=== PATIENT | male | born 1935 | race Caucasian/White ===

== ENCOUNTER 2017-06-17 08:26 | Day surgery (SDC) | payer MEDICARE, BC ==
[2017-06-17 12:24] VITALS: TEMP 98; BMI 21.1
--- NOTE | 2017-06-17 12:40 | ULT ---
ULTRASOUND-GUIDED PARACENTESIS: INDICATIONS: Ascites. TECHNIQUE: Informed consent was obtained. The site overlying the right lower quadrant was prepped and draped i n the usual sterile fashion. Buffered 1% Lidocaine was administered into the underlying subcutaneou s tissues. A 5 [employer] catheter was then guided down into a large in the right lower qu adrant. There was removal of 2 L of normal appearing peritoneal fluid. The patient tolerated the p rocedure without difficulty. IMPRESSION: Successful ultrasound-guided paracentesis with removal of 2 L of normal appearing peritoneal fluid. POS: [facility]
== END 2017-06-17 09:40 | disposition home or self-care (01) ==
LOC: ULT 08:26
PROVIDERS: ATTEND Internal Medicine Gastroenterology
PROC: 0W9G3ZX Drainage of Peritoneal Cavity, Percutaneous Approach, Diagnostic (ICD-10-PCS; principal; 2017-06-17)
PROC: BW40ZZZ Ultrasonography of Abdomen (ICD-10-PCS; 2017-06-17)
DX: R18.8 Other ascites (principal); I48.2 Chronic atrial fibrillation; E11.22 Type 2 diabetes mellitus with diabetic chronic kidney disease; I12.9 Hypertensive chronic kidney disease with stage 1 through stage 4 chronic kidney disease, or unspecified chronic kidney disease; N18.3 Chronic kidney disease, stage 3 (moderate); I25.10 Atherosclerotic heart disease of native coronary artery without angina pectoris; Z95.1 Presence of aortocoronary bypass graft; Z90.5 Acquired absence of kidney; Z87.891 Personal history of nicotine dependence; Z87.19 Personal history of other diseases of the digestive system
CPT/HCPCS: 49083

== ENCOUNTER → 2017-07-01 | Day surgery (SDC) | payer MEDICARE, BC ==
[2017-06-28 09:33] VITALS: BMI 22.8
[~2017-07-01] MED LIST: FLU VACC TS2017-18 (>65YR) 0.5 ML SYRINGE IM ONE; Sodium Bicarbonate 2.4 MEQ/5 ML ONE
[2017-07-01 08:54] LABS: #Eosinphils 0.1 thou/uL (0.0-0.7); #Lymphocytes 1.3 thou/uL (1.20-3.40); #Monocytes 0.4 thou/uL (0.11-0.59); %Basophils 0.7 % (0.0-1.0); %Eosinophils 1.4 % (0.0-10.0); %Lymphocytes 26.9 % (21.0-51.0); %Monocytes 8.9 % (0.0-10.0); Hematocrit 30.7 % (42.0-52.0); Mean Platelet Volume 8.9 fL (7.4-10.4); Red Blood Cell (RBC) Count 3.31 mill/uL (4.70-6.10); White Blood Cell (WBC) Count 4.9 thou/uL (4.8-10.8)
[2017-07-01 09:12] LABS: Prothrombin Time 15.2 SEC (12.0-14.7)
[2017-07-01 09:13] LABS: PTT 33.2 SEC (22.9-36.1)
--- NOTE | 2017-07-01 10:29 | ULT ---
LIMITED ABDOMINAL ULTRASOUND: DATE: 10/01/16. HISTORY: An 81-year-old male, assess ascites volume for paracentesis. FINDINGS: Limited sonographic survey of the abdomen/pelvis performed to evaluate ascites volume. There is a r elatively small amount of ascites noted within the right lower quadrant and right upper quadrant, le ss than on prior imaging. There is no significant fluid in the left lower quadrant or left upper qu adrant and a scant amount of free fluid in the midline. Secondary to the volume of ascites present at this time, paracentesis was not performed. IMPRESSION: Relatively low volume ascites, primarily within the right abdomen. Secondary to low volume, paracen tesis was not performed at this time. Recommend repeat imaging in 1-2 weeks to reevaluate ascites v olume. POS: [facility]
== END ==
LOC: ULT 08:10
PROVIDERS: ATTEND Internal Medicine Gastroenterology
DX: R18.0 Malignant ascites (principal); Z53.8 Procedure and treatment not carried out for other reasons; C64.9 Malignant neoplasm of unspecified kidney, except renal pelvis; I48.2 Chronic atrial fibrillation; I25.10 Atherosclerotic heart disease of native coronary artery without angina pectoris; E11.22 Type 2 diabetes mellitus with diabetic chronic kidney disease; I12.9 Hypertensive chronic kidney disease with stage 1 through stage 4 chronic kidney disease, or unspecified chronic kidney disease; N18.3 Chronic kidney disease, stage 3 (moderate); Z79.84 Long term (current) use of oral hypoglycemic drugs; Z79.899 Other long term (current) drug therapy; Z95.1 Presence of aortocoronary bypass graft; Z87.891 Personal history of nicotine dependence
CPT/HCPCS: 36415; 76705; 85025; 85610; 85730

== ENCOUNTER → 2017-07-15 | Day surgery (SDC) | payer MEDICARE, BC ==
[~2017-07-15] MED LIST changes: -FLU VACC TS2017-18 (>65YR) 0.5 ML SYRINGE IM ONE
[2017-07-15 09:54] VITALS: BP 141/58; TEMP 98.1; BMI 24.4
--- NOTE | 2017-07-15 11:13 | ULT ---
ULTRASOUND GUIDED PARACENTESIS: Date: 07/15/17 HISTORY: Ascites. COMPARISON: 06/17/17. FINDINGS: Technically successful ultrasound guided paracentesis. A total of 3,100 mL of yellow-colored ascites was aspirated. Post procedure image demonstrates essential resolution of ascites. TECHNIQUE: The patient's abdomen was evaluated. Right lower quadrant was deemed appropriate. Consent was obtain ed to perform an ultrasound guided paracentesis. Skin was prepped and draped in the sterile fashion. 1% lidocaine, buffered with sodium bicarbonate, was used for local anesthesia. Under ultrasound yessica ded, a 5 Surinamese 7.0 cm Yueh catheter was advanced into the peritoneal space. Via vacuum bottles, a total of 3,100 mL of yellow-colored ascites was aspirated. The patient tolerated the procedure well. No immediate postprocedure complication. IMPRESSION: Technically successful ultrasound guided paracentesis. POS: [facility]
== END ==
LOC: ULT 08:27
PROVIDERS: ATTEND Internal Medicine Gastroenterology
PROC: 0W9G3ZZ Drainage of Peritoneal Cavity, Percutaneous Approach (ICD-10-PCS; principal; 2017-07-15)
PROC: BW40ZZZ Ultrasonography of Abdomen (ICD-10-PCS; 2017-07-15)
DX: C64.9 Malignant neoplasm of unspecified kidney, except renal pelvis (principal); C78.7 Secondary malignant neoplasm of liver and intrahepatic bile duct; R18.0 Malignant ascites; D63.8 Anemia in other chronic diseases classified elsewhere; I48.2 Chronic atrial fibrillation; I10 Essential (primary) hypertension; E11.9 Type 2 diabetes mellitus without complications; Z79.84 Long term (current) use of oral hypoglycemic drugs; Z79.899 Other long term (current) drug therapy; Z95.1 Presence of aortocoronary bypass graft; Z90.5 Acquired absence of kidney; Z98.890 Other specified postprocedural states; Z87.891 Personal history of nicotine dependence
CPT/HCPCS: 49083

== ENCOUNTER → 2017-08-12 | Day surgery (SDC) | payer MEDICARE, BC ==
[2017-08-12 08:23] LABS: #Eosinphils 0.1 thou/uL (0.0-0.7); #Lymphocytes 0.9 thou/uL (1.20-3.40); #Monocytes 0.3 thou/uL (0.11-0.59); #Neutrophils 2.6 thou/uL (1.40-6.50); %Basophils 0.2 % (0.0-1.0); %Eosinophils 1.8 % (0.0-10.0); %Lymphocytes 23.3 % (21.0-51.0); %Monocytes 7.5 % (0.0-10.0); Hematocrit 30.7 % (42.0-52.0); Mean Platelet Volume 8.9 fL (7.4-10.4); Red Blood Cell (RBC) Count 3.33 mill/uL (4.70-6.10); White Blood Cell (WBC) Count 3.9 thou/uL (4.8-10.8)
[2017-08-12 08:31] LABS: PTT 30.8 SEC (22.9-36.1); Prothrombin Time 15.3 SEC (12.0-14.7)
--- NOTE | 2017-08-12 11:49 | ULT ---
ULTRASOUND GUIDED PARACENTESIS: Date: 08/12/17 HISTORY: Ascites. COMPARISON: Ultrasound guided paracentesis dated 07/15/17. TECHNIQUE: Patient was brought to the ultrasound suite. All questions were answered. The patient's right lower quadrant was prepped and draped in the normal sterile fashion. Timeout was performed. Informed consent was already obtained. 3 mL of buffered lidocaine was instilled into the superficial and deep soft tissues. Small dermatotom y was made. Using a 5 Armenian Yueh needle, the peritoneal space was accessed. 4,600 mL of straw-colore d fluid was aspirated. The patient tolerated the procedure well. IMPRESSION: Technically successful ultrasound guided paracentesis with removal of 4,600 mL of fluid. POS: [facility]
== END ==
LOC: ULT 08:30
PROVIDERS: ATTEND Internal Medicine Gastroenterology
PROC: 0W9G30Z Drainage of Peritoneal Cavity with Drainage Device, Percutaneous Approach (ICD-10-PCS; principal; 2017-08-12)
DX: C64.9 Malignant neoplasm of unspecified kidney, except renal pelvis (principal); C78.7 Secondary malignant neoplasm of liver and intrahepatic bile duct; R18.0 Malignant ascites; D50.0 Iron deficiency anemia secondary to blood loss (chronic); I10 Essential (primary) hypertension; E11.9 Type 2 diabetes mellitus without complications; M10.9 Gout, unspecified; I25.10 Atherosclerotic heart disease of native coronary artery without angina pectoris; I48.91 Unspecified atrial fibrillation; Z79.84 Long term (current) use of oral hypoglycemic drugs; Z79.899 Other long term (current) drug therapy; Z95.1 Presence of aortocoronary bypass graft; Z98.61 Coronary angioplasty status; Z90.5 Acquired absence of kidney; Z87.891 Personal history of nicotine dependence
CPT/HCPCS: 36415; 49083; 85025; 85610; 85730

== ENCOUNTER 2017-08-26 08:07 | Day surgery (SDC) | payer MEDICARE, BC ==
--- NOTE | 2017-08-26 11:26 | ULT ---
ULTRASOUND GUIDED PARACENTESIS: 08/26/2017 Informed consent was obtained from the patient. Ultrasound guidance was used to evaluate the abdomen . A large amount of fluid was seen in the peritoneal cavity. The right mid abdomen was evaluated us ing sonography. The overlying skin was prepped and draped in the usual sterile manner. A 1% Lidocai ne solution was used to anesthetize the overlying soft tissues. A small dermatotomy was made. A 5 F rench Yueh needle was placed in the peritoneal collection. A total of 4000 mL of peritoneal fluid wa s removed without difficulty. No complications encountered during the course of the exam. IMPRESSION: Successful ultrasound guided paracentesis. POS: [facility]
[2017-08-26 12:47] VITALS: BP 114/53; TEMP 97.7; BMI 25.2
== END 2017-08-26 09:45 | disposition home or self-care (01) ==
LOC: ULT 08:07
PROVIDERS: ATTEND Internal Medicine Gastroenterology
DX: C64.9 Malignant neoplasm of unspecified kidney, except renal pelvis (principal); R18.0 Malignant ascites; C78.7 Secondary malignant neoplasm of liver and intrahepatic bile duct; D50.0 Iron deficiency anemia secondary to blood loss (chronic); E11.8 Type 2 diabetes mellitus with unspecified complications; I10 Essential (primary) hypertension; Z79.84 Long term (current) use of oral hypoglycemic drugs; Z79.899 Other long term (current) drug therapy; Z95.5 Presence of coronary angioplasty implant and graft; Z98.890 Other specified postprocedural states
CPT/HCPCS: 49083

== ENCOUNTER 2017-09-09 07:57 | Day surgery (SDC) | payer MEDICARE, BC ==
[2017-09-09 08:14] LABS: #Eosinphils 0.1 thou/uL (0.0-0.7); #Lymphocytes 1.3 thou/uL (1.20-3.40); #Monocytes 0.4 thou/uL (0.11-0.59); #Neutrophils 3.4 thou/uL (1.40-6.50); %Basophils 0.4 % (0.0-1.0); %Eosinophils 2.1 % (0.0-10.0); %Lymphocytes 24.9 % (21.0-51.0); %Monocytes 7.6 % (0.0-10.0); Hematocrit 29.1 % (42.0-52.0); Mean Platelet Volume 7.9 fL (7.4-10.4); Red Blood Cell (RBC) Count 3.32 mill/uL (4.70-6.10); White Blood Cell (WBC) Count 5.2 thou/uL (4.8-10.8)
[2017-09-09] MEDS ORDERED: Sodium Bicarbonate 2.4 MEQ/5 ML ONE (08:14)
[2017-09-09] MEDS ORDERED: Lidocaine 1% PF 5 ML VIAL ONE (08:15)
[2017-09-09 08:21] LABS: PTT 34.1 SEC (22.9-36.1); Prothrombin Time 14.7 SEC (12.0-14.7)
[2017-09-09] MEDS ORDERED: FLU VACC TS2017-18 (>65YR) 0.5 ML SYRINGE IM ONE (09:00)
[2017-09-09 13:12] VITALS: BMI 32.9
--- NOTE | 2017-09-09 13:16 | ULT ---
ULTRASOUND GUIDED PARACENTESIS: DATE: 09/09/17. HISTORY: Symptomatic malignant ascites. FINDINGS: Informed consent was obtained prior to the procedure. Preprocedural imaging demonstrates significant ascites within the abdomen/pelvis, most prominent on t he right. The skin overlying the right upper quadrant was prepped and draped in normal sterile fashion and anes thetized with 1% buffered Lidocaine. With direct sonographic guidance, a 5 Turkmen [employer] catheter is advanced into the ascites within the ri t upper quadrant and removal of the stylette yields christian-colored fluid. 4250 cc were removed. Th e patient tolerated the procedure well with no postprocedural complications. IMPRESSION: Successful ultrasound-guided paracentesis as above. POS: [facility]
[2017-09-09 13:18] VITALS: BP 119/76; TEMP 98.7
== END 2017-09-09 11:20 | disposition home or self-care (01) ==
LOC: ULT 07:57
PROVIDERS: ATTEND Internal Medicine Gastroenterology
PROC: 0W9G3ZX Drainage of Peritoneal Cavity, Percutaneous Approach, Diagnostic (ICD-10-PCS; principal; 2017-09-09)
DX: R18.0 Malignant ascites (principal); C64.9 Malignant neoplasm of unspecified kidney, except renal pelvis; C78.7 Secondary malignant neoplasm of liver and intrahepatic bile duct
CPT/HCPCS: 36415; 49083; 85025; 85610; 85730; J2001

== ENCOUNTER 2017-09-24 08:05 | Day surgery (SDC) | payer MEDICARE, BC ==
[2017-09-20 08:51] VITALS: BMI 22.2
[2017-09-24] MEDS ORDERED: Sodium Bicarbonate 2.5 MEQ/5 ML VIAL ONE (08:26)
[2017-09-24] MEDS ORDERED: Lidocaine 1% PF 5 ML VIAL ONE (08:26)
--- NOTE | 2017-09-24 10:51 | ULT ---
ULTRASOUND-GUIDED PARACENTESIS: CLINICAL INDICATION: Ascites. PROCEDURE: After informed consent had been obtained, the patient was escorted to the ultrasound suite and placed in a supine position. The abdomen was imaged which revealed adequate ascites for the procedure. Th e skin of the abdomen was then prepped and draped in the standard sterile fashion and the skin surfac e, subcutaneous tissues, and peritoneal lining of the abdomen were anesthetized with 1% Lidocaine buf fered with sodium bicarbonate. A right lower quadrant approach was selected. A small skin incision was made at the site of topical anesthesia. Subsequently, under real-time ultrasound guidance a Authentic[employer] catheter was advanced through the incision site into the peritoneal cavity. Ascites was present at the catheter hub. The catheter was then secured to vacuum sealed sterile containers, via sterile tub ing and subsequently 4.1 L of clear yellow ascites was drained from the patient. The patient was the n removed from the patient. The patient tolerated the procedure well without evidence of complicatio n. Post-procedure imaging revealed no complication and interval reduction in volume of ascites. The patient was monitored by a radiology nurse and was stable in condition. Incidental note of hepatic mass formation, incompletely assessed. As clinically feasible, follow up d edicated imaging with CT hepatic mass protocol may be performed to more definitively assess. IMPRESSION: Technically successful ultrasound-guided paracentesis, as above. POS: [facility]
[2017-09-24 11:36] VITALS: BP 115/49; TEMP 97.7
== END 2017-09-24 09:35 | disposition home or self-care (01) ==
LOC: ULT 08:05
PROVIDERS: ATTEND Internal Medicine Gastroenterology
PROC: 0W9G3ZZ Drainage of Peritoneal Cavity, Percutaneous Approach (ICD-10-PCS; principal; 2017-09-24)
PROC: BW40ZZZ Ultrasonography of Abdomen (ICD-10-PCS; 2017-09-24)
DX: C64.9 Malignant neoplasm of unspecified kidney, except renal pelvis (principal); R18.0 Malignant ascites; I10 Essential (primary) hypertension; I48.91 Unspecified atrial fibrillation; E11.9 Type 2 diabetes mellitus without complications; M10.9 Gout, unspecified; I25.10 Atherosclerotic heart disease of native coronary artery without angina pectoris; Z79.4 Long term (current) use of insulin; Z79.899 Other long term (current) drug therapy; Z98.61 Coronary angioplasty status; Z95.1 Presence of aortocoronary bypass graft; Z90.5 Acquired absence of kidney; Z98.890 Other specified postprocedural states; Z87.891 Personal history of nicotine dependence
CPT/HCPCS: 49083; J2001

== ENCOUNTER 2017-10-07 08:01 | Day surgery (SDC) | payer MEDICARE, BC ==
[2017-10-07] MEDS ORDERED: Sodium Bicarbonate 2.4 MEQ/5 ML ONE (08:14)
[2017-10-07 10:18] VITALS: BP 114/52; TEMP 96.7; BMI 26.3
--- NOTE | 2017-10-07 10:28 | ULT ---
SONOGRAPHIC-GUIDED PARACENTESIS: HISTORY: Recurrent ascites. FINDINGS: After explaining the procedure and answering all questions, the right lower quadrant was prepped and draped in the usual sterile fashion. Sterile technique, buffered local anesthesia, sonographic ivy nce, and an anterior right abdominal approach were used to carefully advance the tip of a 19-gauge Lizama eh needle and catheter into the free fluid. The catheter was left to drain a total volume of 4.[address] foamy yellow liquid. The catheter was removed. Minimal fluid remained. The patient tolerated t he procedure well and was dismissed in good condition. IMPRESSION: Technically successful sonographic-guided paracentesis. POS: [facility]
== END 2017-10-07 10:05 | disposition home or self-care (01) ==
LOC: ULT 08:01
PROVIDERS: ATTEND Internal Medicine Gastroenterology
PROC: 0W9G3ZZ Drainage of Peritoneal Cavity, Percutaneous Approach (ICD-10-PCS; principal; 2017-10-07)
PROC: BW40ZZZ Ultrasonography of Abdomen (ICD-10-PCS; 2017-10-07)
DX: C64.9 Malignant neoplasm of unspecified kidney, except renal pelvis (principal); C78.7 Secondary malignant neoplasm of liver and intrahepatic bile duct; R18.0 Malignant ascites; D63.8 Anemia in other chronic diseases classified elsewhere; E11.9 Type 2 diabetes mellitus without complications; I48.91 Unspecified atrial fibrillation; Z79.4 Long term (current) use of insulin; Z79.899 Other long term (current) drug therapy
CPT/HCPCS: 49083

== ENCOUNTER 2017-10-21 08:04 | Day surgery (SDC) | payer MEDICARE, BC ==
[2017-10-18 10:03] VITALS: BMI 22.2
[~2017-10-21 08:04] MED LIST changes: +FLU VACC TS2017-18 (>65YR) 0.5 ML SYRINGE IM ONE; -Sodium Bicarbonate 2.4 MEQ/5 ML ONE
[2017-10-21 08:20] LABS: #Eosinphils 0.1 thou/uL (0.0-0.7); #Lymphocytes 1.1 thou/uL (1.20-3.40); #Monocytes 0.3 thou/uL (0.11-0.59); #Neutrophils 2.1 thou/uL (1.40-6.50); %Basophils 0.2 % (0.0-1.0); %Eosinophils 3.3 % (0.0-10.0); %Lymphocytes 30.2 % (21.0-51.0); %Monocytes 8.3 % (0.0-10.0); Hemoglobin 8.3 g/dL (14.0-18.0); Mean Corpuscular HGB CONC 30.2 g/dL (32.0-36.0); Mean Corpuscular Hemoglobin 27.2 pg (27.0-31.0); Mean Corpuscular Volume 90.1 fl (80.0-94.0); Mean Platelet Volume 7.7 fL (7.4-10.4); Platelet Count 182 thou/uL (130-400); RBC Distribution Width 17.6 % (11.5-14.5); Red Blood Cell (RBC) Count 3.06 mill/uL (4.70-6.10); White Blood Cell (WBC) Count 3.7 thou/uL (4.8-10.8)
[2017-10-21 08:37] LABS: INR-International Normal Ratio 1.2; PTT 35.7 SEC (22.9-36.1); Prothrombin Time 15.6 SEC (12.0-14.7)
[2017-10-21] MEDS ORDERED: Sodium Bicarbonate 2.4 MEQ/5 ML ONE (08:46)
[2017-10-21 09:49] VITALS: TEMP 97.6
[2017-10-21 09:52] VITALS: BP 108/40
--- NOTE | 2017-10-21 11:22 | ULT ---
PROCEDURE NOTE: Date: 10/21/17 PREPROCEDURE DIAGNOSIS: Ascites. POSTPROCEDURE DIAGNOSIS: Ascites. PROCEDURE: Ultrasound guided paracentesis. SENIOR DEVELOPER: Dr. Hines. COMPLICATIONS: None. ANESTHESIA: 6 mL buffered 1% lidocaine. SPECIMEN: 4 liters of straw-colored fluid. COMPLICATIONS: None. TECHNIQUE: Prior to the procedure, the risks and benefits of a paracentesis were explained to the patient and he consented fully to the procedure. The largest fluid collection was seen in the right lower quadrant of the abdomen. This area was prepped and draped in the usual sterile fashion. Lidocaine was used to anesthetize the skin and soft tissues down towards the peritoneal cavity. A Julieth h needle was then placed using ultrasound guidance into the fluid collection in the right lower quadr ant of the abdomen. The needle was removed, leaving the catheter in place. This was connected to mult O[employer] Vacutainer bottles. A total of 4 liters of serous, straw-colored fluid was removed. Minimal flui d is seen in the right lower quadrant at the completion of the procedure. IMPRESSION: Status post ultrasound guided paracentesis. POS: [facility]
== END 2017-10-21 09:37 | disposition home or self-care (01) ==
LOC: ULT 08:04
PROVIDERS: ATTEND Internal Medicine Gastroenterology
PROC: 0W9G3ZZ Drainage of Peritoneal Cavity, Percutaneous Approach (ICD-10-PCS; principal; 2017-10-21)
PROC: BW40ZZZ Ultrasonography of Abdomen (ICD-10-PCS; 2017-10-21)
DX: C64.9 Malignant neoplasm of unspecified kidney, except renal pelvis (principal); C78.7 Secondary malignant neoplasm of liver and intrahepatic bile duct; R18.0 Malignant ascites; D50.0 Iron deficiency anemia secondary to blood loss (chronic); I10 Essential (primary) hypertension; I48.91 Unspecified atrial fibrillation; E11.9 Type 2 diabetes mellitus without complications; M10.9 Gout, unspecified; I25.10 Atherosclerotic heart disease of native coronary artery without angina pectoris; Z79.4 Long term (current) use of insulin; Z79.899 Other long term (current) drug therapy; Z95.1 Presence of aortocoronary bypass graft; Z98.61 Coronary angioplasty status; Z90.5 Acquired absence of kidney
CPT/HCPCS: 36415; 49083; 85025; 85610; 85730

== ENCOUNTER 2017-11-04 07:58 | Day surgery (SDC) | payer MEDICARE, BC ==
[2017-11-04] MEDS ORDERED: Sodium Bicarbonate 2.4 MEQ/5 ML ONE (08:17)
[2017-11-04 10:07] VITALS: BP 103/43; TEMP 97.6; BMI 26.6
--- NOTE | 2017-11-04 10:43 | ULT ---
ULTRASOUND GUIDED PARACENTESIS: Date: 11/04/17 HISTORY: Ascites. COMPARISON: 10/21/17. FINDINGS: Technically successful ultrasound guided paracentesis. A total of 4,200 mL of yellow-colored ascites was aspirated. Postprocedure image does demonstrate a small amount of fluid still present in the bala toneal space. TECHNIQUE: Consent obtained to obtain an ultrasound guided paracentesis. Right lower quadrant was deemed appropr iate. Skin was prepped and draped in the sterile fashion. 1% lidocaine, buffered with sodium bicarbon ate, was used for local anesthesia. Under ultrasound guidance, a 5 Divehi 7 cm catheter was advanced into the peritoneal space. Via vacuum bottles, a total of 4,200 mL of yellow-colored ascites was aspi rated. The patient tolerated the procedure well. No immediate or postprocedure complication. IMPRESSION: Technically successful ultrasound guided paracentesis. POS: [facility]
== END 2017-11-04 09:35 | disposition home or self-care (01) ==
LOC: ULT 07:58
PROVIDERS: ATTEND Internal Medicine Gastroenterology
PROC: 0W9G3ZX Drainage of Peritoneal Cavity, Percutaneous Approach, Diagnostic (ICD-10-PCS; principal; 2017-11-04)
DX: R18.0 Malignant ascites (principal); C64.9 Malignant neoplasm of unspecified kidney, except renal pelvis; C78.7 Secondary malignant neoplasm of liver and intrahepatic bile duct
CPT/HCPCS: 49083

== ENCOUNTER → 2017-11-18 | Day surgery (SDC) | payer MEDICARE, BC ==
[2017-11-15 08:50] VITALS: BMI 22.2
[~2017-11-18] MED LIST changes: +Prevnar 13-Val Conj/PF 0.5 ML SYRINGE IM ONE
[2017-11-18 09:39] VITALS: TEMP 98.1
--- NOTE | 2017-11-18 13:46 | ULT ---
ULTRASOUND GUIDED PARACENTESIS: DATE: 11/18/17. HISTORY: Ascites. TECHNIQUE: After informed consent was obtained, the patient was placed on the sonography table in the supine pos ition. Limited sonographic evaluation of the abdomen was performed. An area in the right upper quad rant mid axillary line was marked and then meticulously prepped and draped in the usual sterile fashi on. The skin and subcutaneous tissues were infiltrated with buffered 1% Lidocaine for local anesthesia. A small skin incision was made. Utilizing concurrent real-time ultrasound guidance, a 19 gauge [employer], Inceh needle with 5 Syriac sheath was a dvanced in the abdomen. After the return of fluid, the sheath was advanced, and the needle was remov ed. Approximately 4300 mL of clear straw-colored fluid was aspirated. The introducer sheath was rem cassy. Followup ultrasound examination demonstrates resolution of the intraperitoneal free fluid. A dry sterile dressing was placed at puncture site. The patient tolerated the procedure well and witho ut immediate complication. IMPRESSION: 1. Incidental note is made of a hypoechoic mass in the right hepatic lobe with central area of great er decreased echogenicity which could be related to an area of necrosis. This mass measures 6.8 cm x 5.[address] scan of the abdomen is recommended for further evaluation. This mass is incompletely as sessed but appears larger in size. 2. Technically successful ultrasound-guided paracentesis. 3. The above findings were discussed with Dr. Rogers on 11/18/17 at 1047 hours. CODE CR POS: [facility]
== END ==
LOC: ULT 08:15
PROVIDERS: ATTEND Internal Medicine Gastroenterology
PROC: 0W9G3ZZ Drainage of Peritoneal Cavity, Percutaneous Approach (ICD-10-PCS; principal; 2017-11-18)
PROC: BW40ZZZ Ultrasonography of Abdomen (ICD-10-PCS; 2017-11-18)
DX: C64.9 Malignant neoplasm of unspecified kidney, except renal pelvis (principal); C78.7 Secondary malignant neoplasm of liver and intrahepatic bile duct; R18.0 Malignant ascites; R93.2 Abnormal findings on diagnostic imaging of liver and biliary tract; I10 Essential (primary) hypertension; E11.9 Type 2 diabetes mellitus without complications; I48.91 Unspecified atrial fibrillation; M10.9 Gout, unspecified; I25.10 Atherosclerotic heart disease of native coronary artery without angina pectoris; Z79.4 Long term (current) use of insulin; Z79.899 Other long term (current) drug therapy; Z95.1 Presence of aortocoronary bypass graft; Z90.5 Acquired absence of kidney
CPT/HCPCS: 49083

== ENCOUNTER → 2017-12-02 | Day surgery (SDC) | payer MEDICARE, BC ==
[~2017-12-02] MED LIST changes: -Prevnar 13-Val Conj/PF 0.5 ML SYRINGE IM ONE
[2017-12-02 08:26] LABS: #Eosinphils 0.1 thou/uL (0.0-0.7); #Lymphocytes 1.1 thou/uL (1.20-3.40); #Monocytes 0.4 thou/uL (0.11-0.59); #Neutrophils 1.3 thou/uL (1.40-6.50); %Basophils 0.3 % (0.0-1.0); %Eosinophils 3.2 % (0.0-10.0); %Lymphocytes 38.6 % (21.0-51.0); %Monocytes 12.6 % (0.0-10.0); %Neutrophils 45.3 % (42.0-75.0); Hemoglobin 8.8 g/dL (14.0-18.0); Mean Corpuscular HGB CONC 30.7 g/dL (32.0-36.0); Mean Corpuscular Volume 91.1 fl (80.0-94.0); Mean Platelet Volume 8.3 fL (7.4-10.4); Platelet Count 178 thou/uL (130-400); RBC Distribution Width 17.7 % (11.5-14.5); Red Blood Cell (RBC) Count 3.13 mill/uL (4.70-6.10); White Blood Cell (WBC) Count 2.9 thou/uL (4.8-10.8)
[2017-12-02 08:38] LABS: INR-International Normal Ratio 1.2; PTT 35.4 SEC (22.9-36.1); Prothrombin Time 15.8 SEC (12.0-14.7)
--- NOTE | 2017-12-02 09:31 | ULT ---
ULTRASOUND GUIDED PARACENTESIS WITH IMAGING: Date: 12/02/17 HISTORY: Ascites. COMPARISON: Numerous prior exams. TECHNIQUE/FINDINGS: The patient was brought to the ultrasound suite. All questions were answered. The patient's right lower quadrant was prepped and draped in the normal sterile fashion. Approximatel y 4 mL of buffered lidocaine was instilled into the superficial and deep soft tissues. After adequate level of anesthesia, a small dermatotomy was made. A 5 Yoruba Yueh needle was used to access the per itoneal space. 3,900 mL of straw-colored fluid was aspirated. The patient tolerated the procedure well. IMPRESSION: Technically successful ultrasound guided paracentesis. POS: [facility]
[2017-12-02 13:14] VITALS: TEMP 97.6
== END ==
LOC: ULT 08:03
PROVIDERS: ATTEND Internal Medicine Gastroenterology
PROC: 0W9G3ZX Drainage of Peritoneal Cavity, Percutaneous Approach, Diagnostic (ICD-10-PCS; principal; 2017-12-02)
PROC: BW40ZZZ Ultrasonography of Abdomen (ICD-10-PCS; 2017-12-02)
DX: C64.9 Malignant neoplasm of unspecified kidney, except renal pelvis (principal); R18.0 Malignant ascites; D50.0 Iron deficiency anemia secondary to blood loss (chronic)
CPT/HCPCS: 36415; 49083; 85025; 85610; 85730

== ENCOUNTER → 2017-12-16 | Day surgery (SDC) | payer MEDICARE, BC ==
[2017-12-13 07:46] VITALS: BMI 22.2
[~2017-12-16] MED LIST changes: +Prevnar 13-Val Conj/PF 0.5 ML SYRINGE IM ONE; +Sodium Bicarbonate 2.5 MEQ/5 ML VIAL ONE
[2017-12-16 09:24] VITALS: TEMP 98
--- NOTE | 2017-12-16 10:19 | ULT ---
ULTRASOUND GUIDED PARACENTESIS WITH IMAGING: Date: 12/16/17 HISTORY: Ascites. COMPARISON: Numerous prior examinations, most recent 12/02/17. FINDINGS: The patient was brought to the ultrasound suite. All questions were answered. The patient's right lower quadrant was prepped and draped in the normal sterile fashion. Timeout was performed. Informed consent was already obtained. 3 mL buffered lidocaine was instilled into the superficial and deep soft tissues. Small dermatotomy w as made after adequate local anesthesia. Using a 5 Kazakh Yueh needle, the peritoneal space was accessed. 4,200 mL of yellow ascitic fluid was aspirated. The patient tolerated the procedure well and without complication. IMPRESSION: Technically successful ultrasound guided paracentesis. POS: [facility]
== END ==
LOC: ULT 08:03
PROVIDERS: ATTEND Internal Medicine Gastroenterology
PROC: 0W9G3ZX Drainage of Peritoneal Cavity, Percutaneous Approach, Diagnostic (ICD-10-PCS; principal; 2017-12-16)
PROC: BW40ZZZ Ultrasonography of Abdomen (ICD-10-PCS; 2017-12-16)
DX: C64.9 Malignant neoplasm of unspecified kidney, except renal pelvis (principal); C78.7 Secondary malignant neoplasm of liver and intrahepatic bile duct; R18.0 Malignant ascites; I10 Essential (primary) hypertension; E11.9 Type 2 diabetes mellitus without complications; Z79.84 Long term (current) use of oral hypoglycemic drugs; Z79.899 Other long term (current) drug therapy
CPT/HCPCS: 49083

== ENCOUNTER 2017-12-30 08:05 | Day surgery (SDC) | payer MEDICARE, BC ==
[2017-12-30] MEDS ORDERED: Sodium Bicarbonate 2.5 MEQ/5 ML VIAL ONE (08:12)
[2017-12-30 09:59] VITALS: BP 114/52; TEMP 97.8
--- NOTE | 2017-12-30 11:57 | ULT ---
ULTRASOUND GUIDED PARACENTESIS: HISTORY: Ascites. COMPARISON: 12/16/17. FINDINGS: Technically successful ultrasound-guided paracentesis. A total of 4,300 mL of yellow color ascites w as removed. The patient tolerated the procedure well. No immediate or post procedure complication. TECHNIQUE: Consent was obtained for ultrasound guided paracentesis. The patient's abdomen was evaluated. Right lower quadrant was deemed appropriate. The skin was prepped and draped in sterile fashion. 1% Lidoc marah, buffered with sodium bicarbonate was used for local anesthesia. Under ultrasound guidance, a 5 Turkmen 7 cm Yueh catheter was advanced into the peritoneal space. Via vacuum bottles, a total of 4, 300 mL of yellow-color ascites was aspirated. The patient tolerated the procedure well. No immediat e or post procedure complications. IMPRESSION: Successful ultrasound-guided paracentesis. POS: [facility]
== END 2017-12-30 09:50 | disposition home or self-care (01) ==
LOC: ULT 08:05
PROVIDERS: ATTEND Internal Medicine Gastroenterology
PROC: 0W9G3ZX Drainage of Peritoneal Cavity, Percutaneous Approach, Diagnostic (ICD-10-PCS; principal; 2017-12-30)
PROC: BW40ZZZ Ultrasonography of Abdomen (ICD-10-PCS; 2017-12-30)
DX: C78.7 Secondary malignant neoplasm of liver and intrahepatic bile duct; I48.91 Unspecified atrial fibrillation; D50.0 Iron deficiency anemia secondary to blood loss (chronic); Z79.84 Long term (current) use of oral hypoglycemic drugs; R18.0 Malignant ascites; E11.9 Type 2 diabetes mellitus without complications; C64.9 Malignant neoplasm of unspecified kidney, except renal pelvis; Z79.899 Other long term (current) drug therapy
CPT/HCPCS: 49083

== ENCOUNTER → 2018-01-13 | Day surgery (SDC) | payer MEDICARE, BC ==
[~2018-01-13] MED LIST changes: -FLU VACC TS2017-18 (>65YR) 0.5 ML SYRINGE IM ONE; +Lidocaine 1% PF 5 ML VIAL ONE
[2018-01-13 08:16] LABS: #Eosinphils 0.1 thou/uL (0.0-0.7); #Lymphocytes 1.1 thou/uL (1.20-3.40); #Monocytes 0.3 thou/uL (0.11-0.59); #Neutrophils 2.5 thou/uL (1.40-6.50); %Eosinophils 3.2 % (0.0-10.0); %Lymphocytes 27.6 % (21.0-51.0); %Monocytes 6.9 % (0.0-10.0); %Neutrophils 61.3 % (42.0-75.0); Hemoglobin 9.1 g/dL (14.0-18.0); Mean Corpuscular HGB CONC 30.6 g/dL (32.0-36.0); Mean Corpuscular Hemoglobin 27.2 pg (27.0-31.0); Mean Corpuscular Volume 89.1 fl (80.0-94.0); Mean Platelet Volume 8.7 fL (7.4-10.4); Platelet Count 202 thou/uL (130-400); RBC Distribution Width 15.9 % (11.5-14.5); Red Blood Cell (RBC) Count 3.34 mill/uL (4.70-6.10)
[2018-01-13 08:36] VITALS: TEMP 97.4
[2018-01-13 08:43] LABS: INR-International Normal Ratio 1.2; Prothrombin Time 15.5 SEC (12.0-14.7)
[2018-01-13 08:44] LABS: PTT 33.5 SEC (22.9-36.1)
--- NOTE | 2018-01-13 09:51 | ULT ---
SONOGRAPHIC GUIDED PARACENTESIS: HISTORY: Recurrent ascites. FINDINGS: After explaining the procedure and answering all questions, sonographic survey shows a large amount o f free fluid throughout the abdomen. Sterile technique, buffered local anesthesia, sonographic ivy nce, and a right lower quadrant anterior approach were used to advance a [address] into the free fluid. The catheter was left to drain a total volume of 3.4 L clear yellow liquid. Minimal liquid remains. Incidental note is made of heterogeneous liver masses. IMPRESSION: Technically successful paracentesis. POS: [facility]
== END ==
LOC: ULT 07:58
PROVIDERS: ATTEND Internal Medicine Gastroenterology
PROC: 0W9G3ZX Drainage of Peritoneal Cavity, Percutaneous Approach, Diagnostic (ICD-10-PCS; principal; 2018-01-13)
PROC: BW40ZZZ Ultrasonography of Abdomen (ICD-10-PCS; 2018-01-13)
DX: C64.9 Malignant neoplasm of unspecified kidney, except renal pelvis (principal); C78.7 Secondary malignant neoplasm of liver and intrahepatic bile duct; R18.0 Malignant ascites; E11.9 Type 2 diabetes mellitus without complications; I48.91 Unspecified atrial fibrillation
CPT/HCPCS: 36415; 49083; 85025; 85610; 85730; J2001

== ENCOUNTER 2018-01-27 07:59 | Day surgery (SDC) | payer MEDICARE, BC ==
[2018-01-24 12:09] VITALS: BMI 22.2
[2018-01-27] MEDS ORDERED: Sodium Bicarbonate 2.5 MEQ/5 ML VIAL ONE (08:06)
[2018-01-27 10:53] VITALS: BP 102/46; TEMP 97.4
--- NOTE | 2018-01-27 11:04 | ULT ---
ULTRASOUND GUIDED PARACENTESIS: HISTORY: Ascites. COMPARISON: 01/13/18. FINDINGS: Technically successful ultrasound-guided paracentesis. A total of 4 L of yellow-colored ascites is a spirated. No immediate or post procedure complication. TECHNIQUE: Consent was obtained to perform an ultrasound-guided paracentesis. Right lower quadrant was deemed a ppropriate. The skin was prepped and draped in a sterile fashion. 1% Lidocaine, buffered with sodiu m bicarbonate was used for local anesthesia. Under ultrasound guidance, a 5 Belgian [employer] catheter was advanced to the peritoneal space. Via vacuum bottles, a total of 4 L of yellow-colored ascites was aspirated. The patient tolerated the procedure well. No immediate or post procedure complications. IMPRESSION: Successful ultrasound-guided paracentesis. POS: [facility]
== END 2018-01-27 09:10 | disposition home or self-care (01) ==
LOC: ULT 07:59
PROVIDERS: ATTEND Internal Medicine Gastroenterology
PROC: 0W9G3ZX Drainage of Peritoneal Cavity, Percutaneous Approach, Diagnostic (ICD-10-PCS; principal; 2018-01-27)
PROC: BW40ZZZ Ultrasonography of Abdomen (ICD-10-PCS; 2018-01-27)
DX: C64.9 Malignant neoplasm of unspecified kidney, except renal pelvis (principal); C78.7 Secondary malignant neoplasm of liver and intrahepatic bile duct; R18.0 Malignant ascites; D50.0 Iron deficiency anemia secondary to blood loss (chronic)
CPT/HCPCS: 49083

== ENCOUNTER → 2018-02-10 | Day surgery (SDC) | payer MEDICARE, BC ==
[2018-02-07 10:53] VITALS: BMI 22.4
--- NOTE | 2018-02-10 10:49 | ULT ---
ULTRASOUND GUIDED PARACENTESIS: Comparison: 01-27-18 History: Ascites. FINDINGS: Technically successful ultrasound guided paracentesis. A total of 4100 ml of yellow colored ascites w as aspirated. No immediate or post procedure complication. Technique: Consent obtained for ultrasound guided paracentesis. Patient's abdomen was evaluated. Right lower gopi drant was deemed appropriate. The skin was prepped and draped in sterile fashion. 1% Lidocaine, buffe red with sodium bicarbonate used for local anesthesia. Under ultrasound guidance, a 5 Turkish 7 cm Julieth h catheter was advanced into the peritoneal space. Via vacuum bottles, a total of 4100 ml of yellow c olored ascites was aspirated. The patient tolerated the procedure well. No immediate or post procedur e complication. IMPRESSION: Successful ultrasound guided paracentesis. POS: [facility]
[2018-02-10 11:43] VITALS: TEMP 97.5
== END ==
LOC: ULT 07:54
PROVIDERS: ATTEND Internal Medicine Gastroenterology
PROC: 0W9G3ZX Drainage of Peritoneal Cavity, Percutaneous Approach, Diagnostic (ICD-10-PCS; principal; 2018-02-10)
PROC: BW40ZZZ Ultrasonography of Abdomen (ICD-10-PCS; 2018-02-10)
DX: C64.9 Malignant neoplasm of unspecified kidney, except renal pelvis (principal); R18.0 Malignant ascites; D50.0 Iron deficiency anemia secondary to blood loss (chronic); Z79.899 Other long term (current) drug therapy
CPT/HCPCS: 49083

== ENCOUNTER 2018-02-24 07:51 | Day surgery (SDC) | payer MEDICARE, BC ==
[2018-02-21 09:36] VITALS: BMI 22.2
[2018-02-24 08:18] LABS: #Basophils 0.1 thou/uL (0.0-0.2); #Eosinphils 0.4 thou/uL (0.0-0.7); #Lymphocytes 1.2 thou/uL (1.20-3.40); #Monocytes 0.4 thou/uL (0.11-0.59); #Neutrophils 2.6 thou/uL (1.40-6.50); %Basophils 1.1 % (0.0-1.0); %Eosinophils 8.7 % (0.0-10.0); %Monocytes 8.5 % (0.0-10.0); %Neutrophils 55.7 % (42.0-75.0); Mean Corpuscular HGB CONC 31.1 g/dL (32.0-36.0); Mean Corpuscular Hemoglobin 26.2 pg (27.0-31.0); Mean Corpuscular Volume 84.2 fl (80.0-94.0); Mean Platelet Volume 7.8 fL (7.4-10.4); Platelet Count 220 thou/uL (130-400); RBC Distribution Width 15.7 % (11.5-14.5); Red Blood Cell (RBC) Count 3.06 mill/uL (4.70-6.10); White Blood Cell (WBC) Count 4.7 thou/uL (4.8-10.8)
[2018-02-24 08:26] LABS: INR-International Normal Ratio 1.3; PTT 33.8 SEC (22.9-36.1)
[2018-02-24] MEDS ORDERED: Sodium Bicarbonate 2.5 MEQ/5 ML VIAL ONE (08:27)
[2018-02-24] MEDS ORDERED: Lidocaine 1% PF 5 ML VIAL ONE (08:27)
[2018-02-24 08:35] LABS: Anion Gap 8 mmol/L (10-20); BUN (Urea Nitrogen) 23 mg/dL (8.4-25.7); Calc. Creatinine Clearance 40 mL/min (70-130); Calcium 7.8 mg/dL (7.8-10.44); Carbon Dioxide 28 mmol/L (23-31); Chloride 106 mmol/L (98-107); Estimated GFR-MDRD 46; Glucose 165 mg/dL (83-110); Potassium 4.9 mmol/L (3.5-5.1); Sodium 137 mmol/L (136-145)
[2018-02-24 09:36] VITALS: TEMP 97.5
[2018-02-24 09:38] VITALS: BP 102/47
--- NOTE | 2018-02-24 11:11 | ULT ---
ULTRASOUND GUIDED PARACENTESIS: DATE: 02/24/18. COMPARISON: 02/10/18. HISTORY: Symptomatic ascites. FINDINGS: Informed consent obtained prior to the procedure. Partially imaged liver demonstrates numerous hypoechoic masses concerning for malignancy. The skin overlying the mid right abdomen was prepped and draped in normal sterile fashion and anesthe tized with 1% buffered Lidocaine. With direct sonographic guidance, a 5 Albanian Yueh catheter is advanced into the ascites in the mid ri ght abdomen and removal of stylette yields yellow fluid. 3850 cc were removed. The patient tolerate d the procedure well. IMPRESSION: Successful ultrasound-guided paracentesis yielding 3850 cc of yellow fluid. POS: [facility]
== END 2018-02-24 09:40 | disposition home or self-care (01) ==
LOC: ULT 07:51
PROVIDERS: ATTEND Internal Medicine Gastroenterology
PROC: 0W9G3ZZ Drainage of Peritoneal Cavity, Percutaneous Approach (ICD-10-PCS; principal; 2018-02-24)
DX: R18.0 Malignant ascites (principal); C64.9 Malignant neoplasm of unspecified kidney, except renal pelvis; D50.0 Iron deficiency anemia secondary to blood loss (chronic)
CPT/HCPCS: 36415; 49083; 80048; 85025; 85610; 85730; J2001

== ENCOUNTER → 2018-03-10 | Day surgery (SDC) | payer MEDICARE, BC ==
[2018-03-07 08:26] VITALS: BMI 22.2
[2018-03-10 12:00] VITALS: TEMP 97.6
--- NOTE | 2018-03-10 12:11 | ULT ---
ULTRASOUND GUIDED PARACENTESIS: DTAE: 03/10/18. HISTORY: Ascites. TECHNIQUE: After informed consent was obtained, the patient was placed on the sonography table in the supine pos ition. Limited ultrasound evaluation was performed. An area in the mid axillary line right mid abdo men was marked, and the area was meticulously prepped and draped in the usual sterile fashion. The skin and subcutaneous tissues were infiltrated buffered 1% Lidocaine for local anesthesia. A sma ll skin incision was made. Utilizing concurrent real-time ultrasound guidance, a 19-gauge [employer]Space needl e with 5 Portuguese sheath was advanced into the abdomen. After return of fluid, the sheath was advanced , and the needle was removed. Approximately 3.4 L of clear straw-colored fluid was aspirated. The s huseyin was removed, and hemostasis was achieved with direct pressure. A dry sterile dressing was plac ed. The patient tolerated the procedure well and without immediate complication. IMPRESSION: Technically successful ultrasound-guided paracentesis. POS: [facility]
== END ==
LOC: ULT 07:57
PROVIDERS: ATTEND Internal Medicine Gastroenterology
PROC: 0W9G3ZZ Drainage of Peritoneal Cavity, Percutaneous Approach (ICD-10-PCS; principal; 2018-03-10)
DX: R18.0 Malignant ascites (principal); C64.9 Malignant neoplasm of unspecified kidney, except renal pelvis; D50.0 Iron deficiency anemia secondary to blood loss (chronic)
CPT/HCPCS: 49083; J2001

== ENCOUNTER 2018-03-24 07:52 | Day surgery (SDC) | payer MEDICARE, BC ==
[2018-03-21 13:53] VITALS: BMI 22.2
[2018-03-24] MEDS ORDERED: Sodium Bicarbonate 2.5 MEQ/5 ML VIAL ONE (08:09)
[2018-03-24] MEDS ORDERED: Lidocaine 1% PF 5 ML VIAL ONE (08:09)
[2018-03-24 08:38] LABS: Iron 12 ug/dL (65-175); Iron Binding Capacity, Total 178 mcg/dL (261-462)
[2018-03-24 09:39] VITALS: BP 108/42; TEMP 97.9
--- NOTE | 2018-03-24 10:05 | ULT ---
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 FINDINGS: 3350 cc of dark yellowish ascitic fluid removed from the right lower quadrant. PROCEDURE NOTE: Scan shows moderate ascites. The right lower quadrant was chosen for puncture. The overlying skin w as prepped and draped in a sterile manner. Local anesthesia was administered with Lidocaine. A 5 Fr ench [employer] catheter with guide needle was introduced under ultrasound guidance into the fluid of the r ight lower quadrant. The needle was removed. The catheter was advanced. The catheter was then kyle ched to suction drainage. 3350 cc of ascitic fluid removed. The patient tolerated the procedure wel l and there were no problems or complications. POS: [facility]
[2018-03-25 15:23] LABS: Hematocrit 24.7 % (37.5-51.0); RBC Folate Test Component 1364 ng/mL (>498)
== END 2018-03-24 09:15 | disposition home or self-care (01) ==
LOC: ULT 07:52
PROVIDERS: ATTEND Internal Medicine Gastroenterology
PROC: 0W9G3ZZ Drainage of Peritoneal Cavity, Percutaneous Approach (ICD-10-PCS; principal; 2018-03-24)
DX: R18.0 Malignant ascites (principal); C64.9 Malignant neoplasm of unspecified kidney, except renal pelvis; D50.0 Iron deficiency anemia secondary to blood loss (chronic)
CPT/HCPCS: 36415; 49083; 82607; 82728; 82747; 83540; 83550; 85014; J2001

== ENCOUNTER → 2018-04-07 | Day surgery (SDC) | payer MEDICARE, BC ==
[~2018-04-07] MED LIST changes: -Prevnar 13-Val Conj/PF 0.5 ML SYRINGE IM ONE
[2018-04-07 08:31] LABS: INR-International Normal Ratio 1.3; PTT 33.1 SEC (22.9-36.1); Prothrombin Time 15.8 SEC (12.0-14.7)
[2018-04-07 08:34] LABS: Anion Gap 9 mmol/L (10-20); BUN (Urea Nitrogen) 28 mg/dL (8.4-25.7); Calc. Creatinine Clearance 0 mL/min (70-130); Carbon Dioxide 27 mmol/L (23-31); Chloride 102 mmol/L (98-107); Estimated GFR-MDRD 42; Glucose 223 mg/dL (83-110); Potassium 4.8 mmol/L (3.5-5.1); Sodium 133 mmol/L (136-145)
[2018-04-07 08:43] LABS: #Eosinphils 0.4 thou/uL (0.0-0.7); #Monocytes 0.4 thou/uL (0.11-0.59); #Neutrophils 2.9 thou/uL (1.40-6.50); %Basophils 0.5 % (0.0-1.0); %Eosinophils 8.8 % (0.0-10.0); %Lymphocytes 21.4 % (21.0-51.0); %Monocytes 8.7 % (0.0-10.0); %Neutrophils 60.5 % (42.0-75.0); Hemoglobin 7.7 g/dL (14.0-18.0); Hypochromia SLIGHT = 6-15 cells (100X) (0-5/hpf); MDiff Complete? YES; Mean Corpuscular HGB CONC 29.6 g/dL (32.0-36.0); Mean Corpuscular Hemoglobin 23.5 pg (27.0-31.0); Mean Corpuscular Volume 79.6 fL (78.0-98.0); Mean Platelet Volume 7.8 fL (7.4-10.4); Microcytosis SLIGHT = 6-15 cells (100X) (0-5/hpf); Ovalocytes SLIGHT = 2-5 cells (100X) (0-1/hpf); Platelet Count 230 thou/uL (130-400); Polychromasia SLIGHT = 2-3 cells (100X) (0-2/hpf); RBC Distribution Width 16.6 % (11.5-14.5); Red Blood Cell (RBC) Count 3.28 mill/uL (4.70-6.10); White Blood Cell (WBC) Count 4.9 thou/uL (4.8-10.8)
--- NOTE | 2018-04-07 09:48 | ULT ---
PROCEDURE NOTE: PREPROCEDURE DIAGNOSIS: Ascites. POSTPROCEDURE DIAGNOSIS: Ascites. PROCEDURE: Ultrasound-guided paracentesis. VARNISH FILTERER: Dr. Hines. COMPLICATIONS: None. SPECIMEN: 2.9 L of straw-colored fluid. ANESTHESIA: 5 mL of buffered 1% Lidocaine. TECHNIQUE: Prior to the procedure, the risks and benefits of an ultrasound-guided paracentesis were explained wi th the patient and he consented fully to the procedure. Ultrasound was used to interrogate the abdomen showing the largest fluid collection in the right lowe r quadrant of the abdomen. This area was then prepped and draped in the usual sterile fashion. Lidocaine was used to anesthetize the skin and soft tissues down towards the abdominal cavity. A sma ll skin incision was made allowing for passage of a Yueh needle and catheter. The Yueh needle and catheter were placed using ultrasound guidance into the abdominal fluid collectio n. The catheter was left in place and the needle removed. This catheter was then connected to multi ple vacutainer bottles. 2.9 L of Fluid was removed. At the completion of the procedure, no residual fluid is seen in the abdomen. IMPRESSION: Status post successful ultrasound-guided paracentesis. POS: [facility]
== END ==
LOC: ULT 07:54
PROVIDERS: ATTEND Internal Medicine Gastroenterology
PROC: 0W9G3ZZ Drainage of Peritoneal Cavity, Percutaneous Approach (ICD-10-PCS; principal; 2018-04-07)
DX: C64.9 Malignant neoplasm of unspecified kidney, except renal pelvis (principal); C78.7 Secondary malignant neoplasm of liver and intrahepatic bile duct; R18.0 Malignant ascites; D63.0 Anemia in neoplastic disease; D50.0 Iron deficiency anemia secondary to blood loss (chronic); Z79.899 Other long term (current) drug therapy
CPT/HCPCS: 36415; 49083; 80048; 85025; 85610; 85730; J2001

== ENCOUNTER 2018-04-21 07:52 | Day surgery (SDC) | payer MEDICARE, BC ==
[2018-04-18 07:10] VITALS: BMI 22.2
[2018-04-21] MEDS ORDERED: Sodium Bicarbonate 2.5 MEQ/5 ML VIAL ONE (08:21)
[2018-04-21] MEDS ORDERED: Lidocaine 1% PF 5 ML VIAL ONE (08:21)
[2018-04-21 09:48] VITALS: BP 112/43; TEMP 97.9
--- NOTE | 2018-04-21 12:06 | ULT ---
ULTRASOUND GUIDED PARACENTESIS: Date; 04/21/18 HISTORY: Symptomatic ascites. FINDINGS: Informed consent obtained prior to the procedure. Preprocedural imaging demonstrates significant right-sided abdominal ascites. Following obtaining informed consent, right mid abdomen was prepped and draped in the normal sterile fashion. Skin was anesthetized with 1% buffered lidocaine. With direct sonographic guidance, a 5 Fren Yueh catheter is advanced into ascites and removal of the stylette yields yellow ascites. 2,400 mL were removed. The patient tolerated the procedure well with no postprocedural complications. IMPRESSION: Successful ultrasound guided paracentesis, yielding 2,400 mL of yellow ascites. POS: [facility]
== END 2018-04-21 09:30 | disposition home or self-care (01) ==
LOC: ULT 07:52
PROVIDERS: ATTEND Internal Medicine Gastroenterology
PROC: 0W9G3ZZ Drainage of Peritoneal Cavity, Percutaneous Approach (ICD-10-PCS; principal; 2018-04-21)
DX: C64.9 Malignant neoplasm of unspecified kidney, except renal pelvis (principal); R18.0 Malignant ascites; D50.0 Iron deficiency anemia secondary to blood loss (chronic); E11.9 Type 2 diabetes mellitus without complications; I25.10 Atherosclerotic heart disease of native coronary artery without angina pectoris; I48.91 Unspecified atrial fibrillation; F17.200 Nicotine dependence, unspecified, uncomplicated; N40.0 Benign prostatic hyperplasia without lower urinary tract symptoms; E78.5 Hyperlipidemia, unspecified; Z79.899 Other long term (current) drug therapy
CPT/HCPCS: 49083; J2001

== ENCOUNTER → 2018-05-05 | Day surgery (SDC) | payer MEDICARE, BC ==
[~2018-05-05] MED LIST changes: +Prevnar 13-Val Conj/PF 0.5 ML SYRINGE IM ONE
[2018-05-05 11:26] VITALS: TEMP 97.3; BMI 26.5
--- NOTE | 2018-05-05 12:20 | ULT ---
SONOGRAPHIC GUIDED PARACENTESIS: HISTORY: Recurrent ascites. FINDINGS: After explaining the procedure and answering all questions, sonographic survey showed a moderate amou nt of free fluid. Sterile technique, buffered local anesthesia, sonographic guidance, and a right lo wer quadrant approach were used to carefully advance a 19 gauge Yueh needle and catheter into the sabas e fluid. The catheter was left to drain a total volume of 2.6 L of clear, yellow liquid. Post proce dure imaging shows minimal residual fluid. The patient tolerated the procedure well and was dismisse d in good condition. IMPRESSION: Technically successful sonographic guided paracentesis. POS: [facility]
== END ==
LOC: ULT 07:54
PROVIDERS: ATTEND Radiology Diagnostic Radiology
PROC: 0W9G3ZZ Drainage of Peritoneal Cavity, Percutaneous Approach (ICD-10-PCS; principal; 2018-05-05)
DX: R18.0 Malignant ascites (principal); C64.9 Malignant neoplasm of unspecified kidney, except renal pelvis
CPT/HCPCS: 49083; J2001

== ENCOUNTER 2018-05-19 07:57 | Day surgery (SDC) | payer MEDICARE, BC ==
[2018-05-16 10:49] VITALS: BMI 22.2
[2018-05-19] MEDS ORDERED: Sodium Bicarbonate 2.5 MEQ/5 ML VIAL ONE (08:33)
[2018-05-19] MEDS ORDERED: Lidocaine 1% PF 5 ML VIAL ONE (08:33)
--- NOTE | 2018-05-19 11:01 | ULT ---
ULTRASOUND GUIDED PARACENTESIS: HISTORY: Ascites. COMPARISON: Prior paracentesis 05/05/18. FINDINGS: The patient was brought to the ultrasound suite. All questions were answered. The patient's right lower quadrant is prepped and draped in normal sterile fashion. Informed consent was obtained. Timeout performed. 3 mL of Lidocaine was instilled into the superficial and deep soft tissues. After adequate local ane sthesia, a small dermatotomy was made. Using a 5 Turkmen Yueh needle, the peritoneal space was access ed. A total of 2.4 liters of straw-colored ascites was removed. The patient tolerated the procedure well without complication. IMPRESSION: Technically successful ultrasound-guided paracentesis with removal of 2.4 liters of fluid. POS: [facility]
[2018-05-19 11:24] VITALS: BP 117/50; TEMP 97.7
== END 2018-05-19 09:10 | disposition home or self-care (01) ==
LOC: ULT 07:57
PROVIDERS: ATTEND Internal Medicine Gastroenterology
PROC: 0W9G3ZZ Drainage of Peritoneal Cavity, Percutaneous Approach (ICD-10-PCS; principal; 2018-05-19)
DX: R18.0 Malignant ascites (principal); C64.9 Malignant neoplasm of unspecified kidney, except renal pelvis; C78.7 Secondary malignant neoplasm of liver and intrahepatic bile duct; D63.0 Anemia in neoplastic disease; D50.0 Iron deficiency anemia secondary to blood loss (chronic); K22.10 Ulcer of esophagus without bleeding; Z79.4 Long term (current) use of insulin; Z79.899 Other long term (current) drug therapy
CPT/HCPCS: 49083; J2001

== ENCOUNTER 2018-06-02 07:52 | Day surgery (SDC) | payer MEDICARE, BC ==
[2018-05-30 10:22] VITALS: BMI 22.2
[~2018-06-02 07:52] MED LIST changes: -Lidocaine 1% PF 5 ML VIAL ONE; -Sodium Bicarbonate 2.5 MEQ/5 ML VIAL ONE
[2018-06-02 09:18] VITALS: TEMP 97.3
--- NOTE | 2018-06-02 10:11 | ULT ---
ULTRASOUND GUIDED PARACENTESIS: Date: 06/02/18 HISTORY: Malignant ascites. History of renal cell carcinoma. TECHNIQUE: After informed consent was obtained, the patient was placed on the sonography table in the supine pos ition. An area in the mid axillary line right upper quadrant was marked and then meticulously prepped and draped in the usual sterile fashion. Skin and subcutaneous tissues were infiltrate with buffered 1% lidocaine for local anesthesia. Small skin incision was made. Utilizing concurrent real-time ultr asound guidance, a 19 gauge [place] needle with 5 Nigerien sheath was advanced into the abdomen. After ret urn of fluid, the sheath was advanced and needle was removed. Approximately 1,300 mL of clear, straw- colored fluid was aspirated. Introducer sheath was removed, and hemostasis was achieved with direct p ressure. A dry, sterile dressing was placed. Post paracentesis ultrasound images demonstrated resolut ion of intraperitoneal free fluid. The patient tolerated the procedure well and without immediate com plication. IMPRESSION: Technically successful ultrasound guided paracentesis. POS: [facility]
== END 2018-06-02 09:05 | disposition home or self-care (01) ==
LOC: ULT 07:52
PROVIDERS: ATTEND Internal Medicine Gastroenterology
PROC: 0W9G3ZZ Drainage of Peritoneal Cavity, Percutaneous Approach (ICD-10-PCS; principal; 2018-06-02)
DX: C64.9 Malignant neoplasm of unspecified kidney, except renal pelvis (principal); R18.0 Malignant ascites; C78.7 Secondary malignant neoplasm of liver and intrahepatic bile duct; D50.0 Iron deficiency anemia secondary to blood loss (chronic); D63.0 Anemia in neoplastic disease; K20.8 Other esophagitis; Z79.4 Long term (current) use of insulin; Z79.899 Other long term (current) drug therapy
CPT/HCPCS: 49083

== ENCOUNTER 2018-06-16 07:54 | Day surgery (SDC) | payer MEDICARE, BC ==
[2018-06-16 08:14] LABS: #Eosinphils 0.3 thou/uL (0.0-0.7); #Monocytes 0.5 thou/uL (0.11-0.59); #Neutrophils 2.4 thou/uL (1.40-6.50); %Basophils 0.7 % (0.0-1.0); %Eosinophils 7.1 % (0.0-10.0); %Lymphocytes 23.6 % (21.0-51.0); %Neutrophils 56.7 % (42.0-75.0); Hemoglobin 8.1 g/dL (14.0-18.0); Mean Corpuscular HGB CONC 28.2 g/dL (32.0-36.0); Mean Corpuscular Volume 70.9 fL (78.0-98.0); Mean Platelet Volume 9.6 fL (7.4-10.4); Platelet Count 261 thou/uL (130-400); RBC Distribution Width 19.2 % (11.5-14.5); Red Blood Cell (RBC) Count 4.04 mill/uL (4.70-6.10); White Blood Cell (WBC) Count 4.2 thou/uL (4.8-10.8)
[2018-06-16] MEDS ORDERED: Lidocaine 1% PF 5 ML VIAL ONE (08:16)
[2018-06-16] MEDS ORDERED: Sodium Bicarbonate 2.5 MEQ/5 ML VIAL ONE (08:16)
[2018-06-16 08:23] LABS: INR-International Normal Ratio 1.4; PTT 35.2 SEC (22.9-36.1); Prothrombin Time 16.8 SEC (12.0-14.7)
[2018-06-16 08:27] LABS: ALT (SGPT) Less than 7 U/L (8-55); AST (SGOT) 7 U/L (5-34); Albumin 2.4 g/dL (3.4-4.8); Alkaline Phosphatase 80 U/L (40-150); Anion Gap 8 mmol/L (10-20); BUN (Urea Nitrogen) 25 mg/dL (8.4-25.7); Bilirubin, Total 0.4 mg/dL (0.2-1.2); Calc. Creatinine Clearance 0 mL/min (70-130); Calcium 7.7 mg/dL (7.8-10.44); Carbon Dioxide 27 mmol/L (23-31); Chloride 105 mmol/L (98-107); Estimated GFR-MDRD 43; Globulin 3.8 g/dL (2.4-3.5); Glucose 68 mg/dL (83-110); Potassium 4.6 mmol/L (3.5-5.1); Protein, Total 6.2 g/dL (5.8-8.1); Sodium 135 mmol/L (136-145)
[2018-06-16 08:34] LABS: Hypochromia SLIGHT = 6-15 cells (100X) (0-5/hpf); MDiff Complete? YES; Microcytosis MODERATE=15-30 cells (100X) (0-5/hpf); Ovalocytes SLIGHT = 2-5 cells (100X) (0-1/hpf); PLT Morphology Comment Appears Adequate; Polychromasia MODERATE = 3-4 cells (100X) (0-2/hpf); Target Cells SLIGHT = 2-5 cells (100X) (0-1/hpf)
[2018-06-16 10:04] VITALS: BP 93/38; TEMP 97.4
--- NOTE | 2018-06-16 12:46 | ULT ---
ULTRASOUND GUIDED PARACENTESIS: INDICATION: Need for paracentesis with history of ascites. TECHNIQUE: Informed consent was obtained. Preprocedure ultrasound demonstrated a large collection seen within t he right lower quadrant. A site overlying this region was prepped and draped in the usual sterile fa shion. Buffered 1% Lidocaine was administered to the overlying subcutaneous tissues. A small incisi on was made in the skin. A 5 D[place] catheter was then guided down to the abdominal cavity. Due to this site being a site of repeated paracentesis with scarring within the peritoneum, that made di fficulty in passing the needle. The needle was eventually passed into the fluid collection in the ri t upper quadrant with return of some mildly bloody-appearing peritoneal fluid. A total of 1.1 lite rs was removed from the peritoneal cavity. The patient tolerated the paracentesis without difficulty . IMPRESSION: Successful right lower quadrant paracentesis with removal of 1.1 liters of fluid. The access to the right upper quadrant fluid collection was slightly limited due to scarring at the location. On follo wup paracentesis, may consider alternative access point in the left lower quadrant of the abdomen. POS: [facility]
== END 2018-06-16 09:15 | disposition home or self-care (01) ==
LOC: ULT 07:54
PROVIDERS: ATTEND Internal Medicine Gastroenterology
PROC: 0W9G3ZZ Drainage of Peritoneal Cavity, Percutaneous Approach (ICD-10-PCS; principal; 2018-06-16)
DX: R18.0 Malignant ascites (principal); C64.9 Malignant neoplasm of unspecified kidney, except renal pelvis; D50.0 Iron deficiency anemia secondary to blood loss (chronic); K22.10 Ulcer of esophagus without bleeding
CPT/HCPCS: 36415; 49083; 80053; 85025; 85610; 85730; J2001

== ENCOUNTER 2018-06-30 07:53 | Day surgery (SDC) | payer MEDICARE, BC ==
[2018-06-30] MEDS ORDERED: Lidocaine 1% PF 5 ML VIAL ONE (08:03)
[2018-06-30] MEDS ORDERED: Sodium Bicarbonate 2.5 MEQ/5 ML VIAL ONE (08:03)
--- NOTE | 2018-06-30 10:02 | ULT ---
ULTRASOUND GUIDED ABDOMINAL PARACENTESIS: INDICATION: Recurrent ascites. FINDINGS: Two liters of dark blood-tinged ascitic fluid removed from the right lower quadrant. Postprocedure u ltrasound showed minimal residual ascites. PROCEDURE NOTE: Four quadrant ultrasound prior to procedure reveals moderate volume ascites. The right lower quadran t was chosen for puncture. The overlying skin was prepped and draped in a sterile manner. Local ane sthesia was administered with Lidocaine and bicarb. A 5 [place] Pepperdata catheter was introduced into the fluid of the right lower quadrant under ultrasound guidance. The catheter was advanced as the needl e was removed. The catheter was attached to suction drainage. Two liters of dark-colored ascitic fl uid removed. The patient tolerated the procedure well and there were no problems. POS: [facility]
[2018-06-30 10:13] VITALS: BP 96/42; TEMP 97.6
== END 2018-06-30 09:15 | disposition home or self-care (01) ==
LOC: ULT 07:53
PROVIDERS: ATTEND Internal Medicine Gastroenterology
PROC: 0W9G3ZZ Drainage of Peritoneal Cavity, Percutaneous Approach (ICD-10-PCS; principal; 2018-06-30)
DX: C64.9 Malignant neoplasm of unspecified kidney, except renal pelvis (principal); C78.7 Secondary malignant neoplasm of liver and intrahepatic bile duct; R18.0 Malignant ascites; D63.0 Anemia in neoplastic disease; Z79.4 Long term (current) use of insulin; Z79.899 Other long term (current) drug therapy
CPT/HCPCS: 49083; J2001

== ENCOUNTER 2018-07-14 07:51 | Day surgery (SDC) | payer MEDICARE, BC ==
[2018-07-14] MEDS ORDERED: Sodium Bicarbonate 2.5 MEQ/5 ML VIAL ONE (08:05)
[2018-07-14] MEDS ORDERED: Lidocaine 1% PF 5 ML VIAL ONE (08:05)
[2018-07-14 09:49] VITALS: BP 97/39; TEMP 97.1
--- NOTE | 2018-07-14 10:36 | ULT ---
ULTRASOUND GUIDED PARACENTESIS: Date: 07-14-18 History: Ascites. Technique: Multiple longitudinal and transverse images of the intraperitoneal space was obtained using multihert z curvilinear transducer. Real-time images obtained. FINDINGS: Images demonstrate a moderate amount of ascites seen in the peritoneal cavity. A pocket of fluid in the right lower, right lateral midabdominal region was localized using ultrasoun d guidance. The overlying skin was prepped and draped in the usual sterile manner. A 1% Lidocaine xochilt ution was used to anesthetize the overlying soft tissues. A small dermatotomy was made. Using ultraso und guidance, a 5 [place] Yueh needle was placed into the peritoneal cavity. A total of 2 L of periton eal fluid was removed without difficulty. No obvious post procedure complications were encountered at the time of this dictation. IMPRESSION: Successful ultrasound guided paracentesis. POS: [facility]
== END 2018-07-14 09:10 | disposition home or self-care (01) ==
LOC: ULT 07:51
PROVIDERS: ATTEND Internal Medicine Gastroenterology
PROC: 0W9G3ZZ Drainage of Peritoneal Cavity, Percutaneous Approach (ICD-10-PCS; principal; 2018-07-14)
DX: C64.9 Malignant neoplasm of unspecified kidney, except renal pelvis (principal); C78.7 Secondary malignant neoplasm of liver and intrahepatic bile duct; R18.0 Malignant ascites; D63.0 Anemia in neoplastic disease; D50.0 Iron deficiency anemia secondary to blood loss (chronic); Z79.4 Long term (current) use of insulin; Z79.899 Other long term (current) drug therapy
CPT/HCPCS: 49083; J2001

== ENCOUNTER 2018-07-28 07:52 | Day surgery (SDC) | payer MEDICARE, BC ==
[2018-07-28 08:11] LABS: #Basophils 0.1 thou/uL (0.0-0.2); #Eosinphils 0.2 thou/uL (0.0-0.7); #Lymphocytes 0.8 thou/uL (1.20-3.40); #Monocytes 0.5 thou/uL (0.11-0.59); %Basophils 1.2 % (0.0-1.0); %Eosinophils 4.1 % (0.0-10.0); %Lymphocytes 17.2 % (21.0-51.0); %Monocytes 10.1 % (0.0-10.0); %Neutrophils 67.4 % (42.0-75.0); Hemoglobin 8.4 g/dL (14.0-18.0); Mean Corpuscular HGB CONC 28.1 g/dL (32.0-36.0); Mean Corpuscular Hemoglobin 19.5 pg (27.0-31.0); Mean Corpuscular Volume 69.2 fL (78.0-98.0); Platelet Count 268 thou/uL (130-400); Red Blood Cell (RBC) Count 4.31 mill/uL (4.70-6.10); White Blood Cell (WBC) Count 4.5 thou/uL (4.8-10.8)
[2018-07-28 08:20] LABS: INR-International Normal Ratio 1.4; PTT 36.2 SEC (22.9-36.1); Prothrombin Time 17.1 SEC (12.0-14.7)
[2018-07-28 08:29] LABS: ALT (SGPT) Less than 7 U/L (8-55); AST (SGOT) 6 U/L (5-34); Albumin 2.3 g/dL (3.4-4.8); Alkaline Phosphatase 74 U/L (40-150); Anion Gap 8 mmol/L (10-20); BUN (Urea Nitrogen) 36 mg/dL (8.4-25.7); Bilirubin, Total 0.5 mg/dL (0.2-1.2); Calc. Creatinine Clearance 0 mL/min (70-130); Calcium 7.8 mg/dL (7.8-10.44); Carbon Dioxide 24 mmol/L (23-31); Chloride 106 mmol/L (98-107); Estimated GFR-MDRD 36; Globulin 3.8 g/dL (2.4-3.5); Glucose 134 mg/dL (83-110); Protein, Total 6.1 g/dL (5.8-8.1); Sodium 133 mmol/L (136-145)
[2018-07-28] MEDS ORDERED: Lidocaine 1% PF 5 ML VIAL ONE (08:42)
[2018-07-28] MEDS ORDERED: Sodium Bicarbonate 2.5 MEQ/5 ML VIAL ONE (08:42)
[2018-07-28 08:57] LABS: Hypochromia MODERATE=16-30 cells (100X) (0-5/hpf); MDiff Complete? YES; Microcytosis MODERATE=15-30 cells (100X) (0-5/hpf); Ovalocytes SLIGHT = 2-5 cells (100X) (0-1/hpf); PLT Morphology Comment Appears Adequate; Polychromasia MODERATE = 3-4 cells (100X) (0-2/hpf); Target Cells SLIGHT = 2-5 cells (100X) (0-1/hpf)
[2018-07-28 09:23] VITALS: BMI 19.6
[2018-07-28 09:25] VITALS: BP 96/41; TEMP 98.8
--- NOTE | 2018-07-28 11:28 | ULT ---
ULTRASOUND GUIDED PARACENTESIS: Date: 07-28-18 History: Ascites. Technique: After informed consent was obtained, the patient was placed on the sonography table in the supine pos ition. Limited sonographic evaluation of the abdomen was performed. An area in the mid axillary line right mid abdomen was marked and the area was then meticulously prepped and draped in the usual steri le fashion. Skin and subcutaneous tissues were infiltrated with buffered 1% Lidocaine for local anesthesia. Small skin incision was made. Utilizing concurrent real-time ultrasound guidance, a 19 gauge Yoop[place]eh needle with sheath was advanced i nto the abdomen. After the return of fluid, the sheath was advanced and the needle removed. Approxima tely 1.9 L of clear straw colored fluid was aspirated. The catheter was removed and hemostatis was ac hieved with direct pressure. Follow up sonographic evaluation demonstrates resolution of the fluid wi thin the right abdomen. Dry sterile dressing was placed. Patient tolerated the procedure well and without immediate complicat ion. IMPRESSION: Technically successful ultrasound guided paracentesis with aspiration of 1.9 L of clear straw colored fluid. POS: [facility]
== END 2018-07-28 09:17 | disposition home or self-care (01) ==
LOC: ULT 07:52
PROVIDERS: ATTEND Internal Medicine Gastroenterology
PROC: 0W9G3ZZ Drainage of Peritoneal Cavity, Percutaneous Approach (ICD-10-PCS; principal; 2018-07-28)
DX: C64.9 Malignant neoplasm of unspecified kidney, except renal pelvis (principal); C78.7 Secondary malignant neoplasm of liver and intrahepatic bile duct; R18.0 Malignant ascites; D50.0 Iron deficiency anemia secondary to blood loss (chronic); Z79.4 Long term (current) use of insulin; Z79.899 Other long term (current) drug therapy
CPT/HCPCS: 36415; 49083; 80053; 85025; 85610; 85730; J2001